=== PATIENT | female | born 1960 | race African-American/Black ===

== ENCOUNTER 2022-04-18 16:39 | Inpatient (IN) | payer MEDICAID ==
[~2022-04-18] VITALS: Ht 172.7 cm; Wt 102.7 kg
[2022-04-18 17:03] LABS: Basophils # (auto) 0.1 10 ^3/uL (0-0.2); Basophils % (auto) 1.3 % (0.0-2.0); Eosinophils # (auto) 0.2 10 ^3/uL (0-0.8); Eosinophils % (auto) 2.1 % (0.0-7.0); Hematocrit 39.4 % (36.0-46.0); Hemoglobin 12.6 g/dL (12.2-16.2); Lymphocytes # (auto) 2.4 10 ^3/uL (0.4-5.4); Lymphocytes % (auto) 30.2 % (10.0-50.0); Mean Corpuscular Hemoglobin 27.1 pg (28.0-32.0); Mean Corpuscular Volume 84.7 fL (80.0-100.0); Monocytes # (auto) 0.4 10 ^3/uL (0-1.3); Monocytes % (auto) 5.4 % (0.0-12.0); Neutrophils # (auto) 4.8 10 ^3/uL (1.6-8.6); Red Blood Cells 4.66 10^6/uL (4.0-5.20); Red Cell Distribution Width 14.9 % (11.8-14.3); White Blood Cell 7.9 10^3/uL (4.4-10.8)
[2022-04-18 17:30] LABS: Albumin 3.7 g/dL (3.4-5.0); Calcium 8.4 mg/dL (8.5-10.1); Potassium 3.5 mmol/L (3.5-5.1)
[2022-04-18 17:34] LABS: BUN/Creatinine Ratio 13.2; Bilirubin, Total 0.4 mg/dL (0.2-1.0); Total Protein 7.4 g/dL (6.4-8.2)
[2022-04-18] MEDS ORDERED: LABETALOL HCL 5 MG/ML 4ML SYRINGE IV ONE ×2 (19:15→19:30)
[2022-04-18] MEDS ORDERED: ASPirin 325 MG TAB PO ONE (19:30)
[2022-04-19] MEDS ORDERED: NITROGLYCERIN 0.4 MG SL TAB SL PRN (04:30)
[2022-04-19] MEDS ORDERED: ONDANSETRON HCL 4 MG/2 ML VIAL IV PRN (04:30)
[2022-04-19] MEDS ORDERED: hydrALAZINE HCL 20 MG/ML VL IV PRN (04:30)
[2022-04-19] MEDS: ASPirin-EC 81 mg tab PO SCH (10:12)
[2022-04-19] MEDS: METOPROLOL TARTRATE 25 MG TAB PO SCH ×2 (10:12→21:56)
[2022-04-19] MEDS: ENOXAPARIN SOD 40 MG/0.4 ML SYRINGE SC SCH (10:12)
[2022-04-19] MEDS: LOSARTAN POTASSIUM 50 MG TAB PO SCH (15:07)
[2022-04-19 17:52] VITALS: BP 149/90
[2022-04-19] MEDS ORDERED: TEMAZEPAM 15 MG CAP PO PRN (18:30)
[2022-04-19] MEDS ORDERED: ACETAMINOPHEN 325 MG TAB PO PRN (18:30)
[2022-04-19 20:00] VITALS: BP 113/68
[2022-04-19 22:00] VITALS: BP 110/60
[2022-04-19] MEDS ORDERED: ATORVASTATIN 20 MG TAB PO SCH (22:00)
[2022-04-20 05:11] VITALS: BP 135/81
[2022-04-20 06:49] LABS: Basophils # (auto) 0.1 10 ^3/uL (0-0.2); Eosinophils # (auto) 0.2 10 ^3/uL (0-0.8); Eosinophils % (auto) 3.9 % (0.0-7.0); Hematocrit 37.8 % (36.0-46.0); Hemoglobin 12.3 g/dL (12.2-16.2); Lymphocytes # (auto) 1.6 10 ^3/uL (0.4-5.4); Lymphocytes % (auto) 29.2 % (10.0-50.0); Mean Corpuscular Hemoglobin 27.5 pg (28.0-32.0); Mean Corpuscular Hgb Conc. 32.5 g/dL (32.0-36.0); Mean Corpuscular Volume 84.6 fL (80.0-100.0); Monocytes # (auto) 0.3 10 ^3/uL (0-1.3); Monocytes % (auto) 5.9 % (0.0-12.0); Neutrophils # (auto) 3.4 10 ^3/uL (1.6-8.6); Red Blood Cells 4.47 10^6/uL (4.0-5.20); Red Cell Distribution Width 14.9 % (11.8-14.3); White Blood Cell 5.6 10^3/uL (4.4-10.8)
[2022-04-20 09:00] VITALS: BP 151/82
[2022-04-20] MEDS: ENOXAPARIN SOD 40 MG/0.4 ML SYRINGE SC SCH (09:28)
[2022-04-20] MEDS: METOPROLOL TARTRATE 25 MG TAB PO SCH (09:28)
[2022-04-20] MEDS: LOSARTAN POTASSIUM 50 MG TAB PO SCH (09:28)
[2022-04-20] MEDS: ASPirin-EC 81 mg tab PO SCH (09:28)
[2022-04-20] MEDS ORDERED: MET25T PO (10:59)
[2022-04-20] MEDS ORDERED: ASPI-543 PO (10:59)
[2022-04-20] MEDS ORDERED: LOSA-69 PO (10:59)
[2022-04-20 11:23] LABS: BUN/Creatinine Ratio 12.5; Calcium 8.7 mg/dL (8.5-10.1)
[2022-04-20 12:28] VITALS: BP 151/82
[2022-04-20 13:00] VITALS: BP 153/85
== END 2022-04-20 13:37 | disposition home or self-care (01) | DRG 199 ==
LOC: ER 16:39 → TELE 04-19 04:20 → TELE-CENTR 04-19 17:30
PROVIDERS: ADMIT Hospitalist; ATTEND Hospitalist
DX: I16.0 Hypertensive urgency (principal); R07.9 Chest pain, unspecified; I10 Essential (primary) hypertension; Z88.5 Allergy status to narcotic agent; Z20.822 Contact with and (suspected) exposure to COVID-19
CPT/HCPCS: 36415; 71045; 80048; 80053; 83880; 84484; 85025; 85379; 93306; 96372; 96374; 96375; G0378; J3490

== ENCOUNTER → 2024-01-29 | Outpatient (CLI) | payer MEDICAID ==
[~2024-01-29] VITALS: Ht 172.7 cm; Wt 77.1 kg
[~2024-01-29] MED LIST: ADENOSINE 65 MG in GIVE UN-DILUTED 0 ML IV ONE; ADENOSINE 90 MG/30 ML INJ IV ONE; ASPI-543 PO; CARVEDILOL 12.5 MG TAB ONE; LOSA-534 PO; MET25T PO
== END | disposition home or self-care (01) ==
LOC: Rad HDHVI 08:55
PROVIDERS: ATTEND Internal Medicine Cardiovascular Disease
DX: Z13.6 Encounter for screening for cardiovascular disorders (principal); I10 Essential (primary) hypertension; R94.31 Abnormal electrocardiogram [ECG] [EKG]; R07.89 Other chest pain
CPT/HCPCS: 78452; 93005; 96374; 96375; A9500; J0153